=== PATIENT | female | born 1955 | race Caucasian/White ===

== ENCOUNTER → 2017-03-18 12:38 | Emergency (ER) | payer BC ==
[~2017-03-18 12:38] MED LIST: Aspirin Low Dose CHEW TAB* 81 MG PO ONE
[2017-03-18 13:13] LABS: Hematocrit 39 % (35-47); Hemoglobin 13.3 g/dl (12.0-16.0); Mean Corpuscular HGB Conc 34 g/dl (31-36); Mean Corpuscular Hemoglobin 30 pg (27-31); Mean Corpuscular Volume 87 fL (80-97); Mean Platelet Volume 9 um3 (7.4-10.4); Red Blood Count 4.51 10^6/ul (4.0-5.4); Red Cell Distribution Width 14 % (10.5-15); White Blood Count 8.8 10^3/ul (3.5-10.8)
--- NOTE | 2017-03-18 13:15 | ED ---
HPI Chest Pain - HPI Summary HPI Summary: Patient presents to the ED with CC of right sided chest pain which radiates up the neck and into the shoulder traveling down the scapular. Onset at 10am which was sharp and constant for approximately 10 minutes. She was at rest at the onset of pain. Now rates the pain a 3/10 and is dull. Denies other symptoms. Denies SOB, visual changes, GONZALES, abdominal pain, difficulty swallowing , pain in the calfs bilaterally or pain with movement of the shoulder. She denies recent trauma or exercise. She denies travel or known malignancy. Denies history of blood clots or cardiac issues. PMHx includes hypercholesterolemia which she has not been taking her prescribed medications for sometime. Denies cough or recent illness. Denies anxiety history. Pain is not worse with movement or better with rest. She has had one more episode of sharp pain which then became dull again same as the previous pain this morning. She endorses tingling into the right arm which was present with the pain, but has since resolved. She has been adamant this is not muscular as there is no worsening pain with palpation of the shoulder or chest wall. Denies significant family history of cardiac issues. Non-smoker, not immunocompromised. Borderline diabetic per patient, but does not take medications. - History of Current Complaint Chief Complaint: EDChestPainROMI Time Seen by Provider: 03/18/17 12:51 Hx Obtained From: Patient Onset/Duration: Started Hours Ago Timing: Constant Initial Severity: Moderate Current Severity: Mild Pain Intensity: 5 Pain Scale Used: 0-10 Numeric Chest Pain Location: Discrete at:, Right Anterior Chest Pain Radiates: Yes Chest Pain Radiates To:: Back, Shoulder Character: Dull/Aching Aggravating Factor(s): Nothing Alleviating Factor(s): Nothing Associated Signs and Symptoms: Positive: Chest Pain, Back Pain - Risk Factors Pulmonary Embolism Risk Factors: Negative TAD Risk Factors: Negative - Allergy/Home Medications Allergies/Adverse Reactions: Allergies Allergy/AdvReac Type Severity Reaction Status Date / Time No Known Allergies Allergy Verified 03/18/17 13:07 Home Medications: Home Medications NK [No Home Medications Reported] 03/18/17 [History Confirmed 03/18/17] PMH/Surg Hx/FS Hx/Imm Hx Previously Healthy: Yes - Surgical History Hx Anesthesia Reactions: No - Immunization History Hx Pertussis Vaccination: No Immunizations Up to Date: Unable to Obtain/Confirm Infectious Disease History: No Infectious Disease History: Denies: Traveled Outside the [place] in Last 30 Days - Social History Occupation: Employed Full-time Lives: With Family Alcohol Use: None Hx Substance Use: No Substance Use Type: Reports: None Hx Tobacco Use: No Smoking Status (MU): Never Smoked Tobacco Do You Chew or Dip Tobacco: No Review of Systems Constitutional: Negative Negative: Fever, Chills, Fatigue Eyes: Negative Positive: Chest Pain. Negative: Palpitations Negative: Shortness Of Breath, Cough Negative: Abdominal Pain, Vomiting, Diarrhea, Nausea Genitourinary: Negative Positive: no symptoms reported, see HPI Positive: Arthralgia - right shoulder and back pain referred from right anterior chest wall Skin: Negative Neurological: Negative Negative: Anxious, Depressed All Other Systems Reviewed And Are Negative: Yes Physical Exam Triage Information Reviewed: Yes Vital Signs On Initial Exam: Initial Vitals Temp Pulse Resp BP Pulse Ox 97.4 F 74 16 196/80 98 03/18/17 12:41 03/18/17 12:41 03/18/17 12:41 03/18/17 12:41 03/18/17 12:41 Vital Signs Reviewed: Yes Appearance: Positive: Well-Appearing, No Pain Distress, Well-Nourished Skin: Positive: Warm, Skin Color Reflects Adequate Perfusion Head/Face: Positive: Normal Head/Face Inspection Eyes: Positive: EOMI, TU, Conjunctiva Clear Neck: Positive: Supple, Nontender, No Lymphadenopathy Respiratory/Lung Sounds: Positive: Clear to Auscultation, Breath Sounds Present Cardiovascular: Positive: Normal, RRR, Pulses are Symmetrical in both Upper and Lower Extremities. Negative: IRR, Murmur, Rub, Leg Edema Left, Leg Edema Right Abdomen Description: Positive: Nontender, No Organomegaly, Soft Bowel Sounds: Positive: Present Musculoskeletal: Positive: Normal, Strength/ROM Intact Neurological: Positive: Speech Normal Psychiatric: Positive: Normal, Affect/Mood Appropriate AVPU Assessment: Alert - Jada Coma Scale Best Eye Response: 4 - Spontaneous Best Motor Response: 6 - Obeys Commands Best Verbal Response: 5 - Oriented Diagnostics - Vital Signs Vital Signs Temp Pulse Resp BP Pulse Ox 03/18/17 13:00 69 13 184/77 99 03/18/17 12:41 97.4 F 74 16 196/80 98 - Laboratory Result Diagrams: 03/18/17 13:03 03/18/17 13:03 Lab Statement: Any lab studies that have been ordered have been reviewed, and results considered in the medical decision making process. Chest Pain Course/Dx - Course Course Of Treatment: During the course of treatmentk patient is evaluated for right shoulder and back pain referred from right anterior chest wall which began spontaneously this morning at 10 am (3.5 hours prior to arrival) and has since resolved. Denies SOB or calf pain. D-dimer < 200. Chest xray negative. EKG shows NSR. Labs obtained and all WNL including troponin. Patient feeling improved. Patient made aware of all results and this pain is likely a deep seated MSK inflammation pain. She is encouraged to return for worsening symptoms. Encouraged Ibuprofen. Treatment options explained to patient. Patient understands the plan, voices no concerns at this time and understands the return precatuions given to them if any symptoms become worse. They are OK for discharge at this time. VS stable on discharge. - Chest Pain Differential Diagnosis/HQI/PQRI: Chest Wall, Other: - MSK pain - Diagnoses Provider Diagnoses: Musculoskeletal chest pain Discharge - Discharge Plan Condition: Stable Disposition: HOME Patient Education Materials: Chest Pain (ED) Referrals: Ania Atwood MD [Primary Care Provider] - Additional Instructions: RETURN TO THE ED IMMEDIATELY FOR ANY WORSENING OR DIFFERENT PAIN
[2017-03-18 13:29] LABS: Albumin 4.3 g/dL (3.2-5.2); Calcium 9.7 mg/dL (8.6-10.3); EGFR African American 94.8 (>60); EGFR Non-African American 73.7 (>60); Globulin 2.7 g/dL (2-4); Magnesium 2.1 mg/dL (1.9-2.7); Potassium 3.7 mmol/L (3.5-5.0); Total Bilirubin 0.4 mg/dL (0.2-1.0)
--- NOTE | 2017-03-18 13:32 | RAD ---
HISTORY: Chest pain COMPARISONS: None VIEWS: 1: frontal portable view of the chest at 1:15 PM FINDINGS: LINES AND TUBES: None. CARDIOMEDIASTINAL SILHOUETTE: The cardiomediastinal silhouette is normal for portable technique. PLEURA: The costophrenic angles are sharp. No pleural abnormalities are noted. LUNG PARENCHYMA: The lungs are clear. ABDOMEN: The upper abdomen is clear. There is no subphrenic gas. BONES AND SOFT TISSUES: No bone or soft tissue abnormalities are noted. IMPRESSION: NO ACTIVE CARDIOPULMONARY DISEASE.
[2017-03-18 14:09] VITALS: BP 139/57
== END | disposition home or self-care (01) ==
LOC: ED 12:38
DX: R07.9 Chest pain, unspecified (principal)
CPT/HCPCS: 36415; 71010; 80053; 82550; 82553; 83605; 83735; 83874; 83880; 84484; 85025; 85379; 85610; 85730; 93005; 99282; A9270-GY